=== PATIENT | female | born 1975 | race Caucasian/White ===

== ENCOUNTER 2021-02-16 08:59 | Outpatient (CLI) | payer OTHER | END 2021-02-16 09:00 | disposition home or self-care (01) | LOC: LAB 08:59 | PROVIDERS: ATTEND Internal Medicine Hematology & Oncology | DX: I10 Essential (primary) hypertension (principal); D50.8 Other iron deficiency anemias; C25.7 Malignant neoplasm of other parts of pancreas; R79.9 Abnormal finding of blood chemistry, unspecified; K76.89 Other specified diseases of liver; D51.0 Vitamin B12 deficiency anemia due to intrinsic factor deficiency; E03.8 Other specified hypothyroidism; E06.3 Autoimmune thyroiditis; R97.8 Other abnormal tumor markers; D64.89 Other specified anemias; N95.1 Menopausal and female climacteric states; E24.0 Pituitary-dependent Cushing's disease ==

== ENCOUNTER → 2021-02-25 08:06 | Outpatient (CLI) | payer OTHER | END | disposition home or self-care (01) | LOC: LAB 08:06 | PROVIDERS: ATTEND Internal Medicine | DX: I10 Essential (primary) hypertension (principal); E23.0 Hypopituitarism ==

== ENCOUNTER 2021-04-05 07:51 | Outpatient (CLI) | payer OTHER | END 2021-04-05 07:52 | disposition home or self-care (01) | LOC: NUCLEAR 07:51 | PROVIDERS: ATTEND Internal Medicine Hematology & Oncology | DX: D51.3 Other dietary vitamin B12 deficiency anemia (principal); R97.8 Other abnormal tumor markers; F33.9 Major depressive disorder, recurrent, unspecified; K29.70 Gastritis, unspecified, without bleeding | CPT/HCPCS: 78816; A9552 ==

== ENCOUNTER 2022-06-30 06:00 | Day surgery (SDC) | payer OTHER | END 2022-06-30 10:35 | disposition home or self-care (01) | LOC: AMB-ENDOS 06:00 | PROVIDERS: ATTEND Surgery | DX: R14.0 Abdominal distension (gaseous) (principal); R19.4 Change in bowel habit; R19.7 Diarrhea, unspecified; K64.4 Residual hemorrhoidal skin tags; Z91.040 Latex allergy status; Z88.1 Allergy status to other antibiotic agents; Z20.822 Contact with and (suspected) exposure to COVID-19 ==

== ENCOUNTER 2023-11-30 07:09 | Outpatient (CLI) | payer OTHER | END 2023-11-30 07:10 | disposition home or self-care (01) | LOC: NUCLEAR 07:09 | PROVIDERS: ATTEND Internal Medicine Gastroenterology | DX: K21.9 Gastro-esophageal reflux disease without esophagitis (principal); K44.9 Diaphragmatic hernia without obstruction or gangrene; K31.89 Other diseases of stomach and duodenum; K22.89 Other specified disease of esophagus; R97.0 Elevated carcinoembryonic antigen [CEA]; R19.7 Diarrhea, unspecified; R10.13 Epigastric pain; R11.0 Nausea; K62.5 Hemorrhage of anus and rectum | CPT/HCPCS: 78264; A9541 ==